=== PATIENT | female | born 1985 | race Two or more races ===

== ENCOUNTER 2019-04-10 17:50 | Emergency (ER) | payer SELFPAY ==
[~2019-04-10] VITALS: Ht 152.4 cm; Wt 56.7 kg
[2019-04-10 19:00] VITALS: BP 141/87
--- NOTE | 2019-04-10 19:23 | PHYS DOC ---
Past Medical History Past Medical History: No Pertinent History (KARINE MCKEON DO) Past Surgical History: No Surgical History (KARINE MCKEON DO) Additional Information: Nonsmoker Alcohol Use: None Drug Use: None (KARINE MCKEON DO) Adult General Chief Complaint Chief Complaint: VAGINAL BLEEDING HPI HPI Patient is a 33 year old female with no significant medical history 1 para 0 presenting to the ED today with vaginal bleeding in that began yesterday as spotting and has not tongue didn't bleeding. Patient is also complaining of mild lower abdominal pain described as cramping and intermittent. Denies anything specifically exacerbating or relieving her symptoms. She states she is visiting from [place]. Her last menstrual cycle was around a 03/03/2019. (PATRIA GAN APRN) Review of Systems Review of Systems Constitutional: Denies fever or chills [] Eyes: Denies change in visual acuity, redness, or eye pain [] HENT: Denies nasal congestion or sore throat [] Respiratory: Denies cough or shortness of breath [] Cardiovascular: No additional information not addressed in HPI [] GI: Reports abdominal pain and vaginal bleeding in , denies nausea, vomiting, bloody stools or diarrhea [] : Denies dysuria or hematuria [] Musculoskeletal: Denies back pain or joint pain [] Integument: Denies rash or skin lesions [] Neurologic: Denies headache, focal weakness or sensory changes [] All other systems were reviewed and found to be within normal limits, except as documented in this note. (PATRIA GAN APRN) Allergies Allergies Allergies Coded Allergies Type Severity Reaction Last Updated Verified No Known Drug Allergies 04/10/19 No (KARINE MCKEON DO) Physical Exam Physical Exam Constitutional: Well developed, well nourished, no acute distress, non-toxic appearance. [] HENT: Normocephalic, atraumatic, bilateral external ears normal, oropharynx moist, no oral exudates, nose normal. [] Eyes: PERRLA, EOMI, conjunctiva normal, no discharge. [] Neck: Normal range of motion, no tenderness, supple, no stridor. [] Cardiovascular:Heart rate regular rhythm, no murmur [] Lungs & Thorax: Bilateral breath sounds clear to auscultation [] Abdomen: Bowel sounds normal, soft, no tenderness, no masses, no pulsatile masses. [] Pelvic exam External pelvic appears normal, cervix is visualized, closed, no CMT, adnexal tenderness, trace amount of pinkish discharge in the vaginal vault. Skin: Warm, dry, no erythema, no rash. [] Back: No tenderness, no CVA tenderness. [] Extremities: No tenderness, no cyanosis, no clubbing, ROM intact, no edema. [] Neurologic: Alert and oriented X 3, normal motor function, normal sensory function, no focal deficits noted. [] Psychologic: Affect normal, judgement normal, mood normal. [] (PATRIA GAN APRN) Physical Exam Constitutional: Well developed, well nourished, no acute distress, non-toxic appearance HENT: Normocephalic, atraumatic, oropharynx moist Eyes: Conjunctiva normal, no discharge Neck: Normal range of motion, no tenderness, supple Cardiovascular: Heart rate normal, regular rhythm Lungs & Thorax: Bilateral breath sounds clear to auscultation, no wheezing Abdomen: Soft, no tenderness Skin: Warm, dry, no erythema, no rash Extremities: No tenderness, ROM intact, no edema Neurologic: Alert and oriented X 3, no focal deficits noted Psychologic: Affect normal, judgement normall (MCKEONKARINE SPARROW R DO) Current Patient Data Vital Signs Vital Signs Date Time Temp Pulse Resp B/P (MAP) Pulse Ox O2 Delivery O2 Flow Rate FiO2 04/10/19 19:00 98.7 99 16 141/87 (105) 99 Room Air 98.7 (MCKEON,KARINE R DO) Lab Values Laboratory Tests Test 04/10/19 19:10 04/10/19 19:55 04/10/19 20:00 POC Urine HCG, Qualitative Hcg positive (Negative) White Blood Count 10.7 x10^3/uL (4.0-11.0) Red Blood Count 4.29 x10^6/uL (3.50-5.40) Hemoglobin 13.8 g/dL (12.0-15.5) Hematocrit 39.9 % (36.0-47.0) Mean Corpuscular Volume 93 fL (79-100) Mean Corpuscular Hemoglobin 32 pg (25-35) Mean Corpuscular Hemoglobin Concent 35 g/dL (31-37) Red Cell Distribution Width 13.3 % (11.5-14.5) Platelet Count 248 x10^3/uL (140-400) Neutrophils (%) (Auto) 68 % (31-73) Lymphocytes (%) (Auto) 23 % (24-48) L Monocytes (%) (Auto) 7 % (0-9) Eosinophils (%) (Auto) 2 % (0-3) Basophils (%) (Auto) 1 % (0-3) Neutrophils # (Auto) 7.3 x10^3uL (1.8-7.7) Lymphocytes # (Auto) 2.4 x10^3/uL (1.0-4.8) Monocytes # (Auto) 0.7 x10^3/uL (0.0-1.1) Eosinophils # (Auto) 0.2 x10^3/uL (0.0-0.7) Basophils # (Auto) 0.1 x10^3/uL (0.0-0.2) Maternal Serum HCG Beta Subunit 40552 mIU/mL (0-5) H Sodium Level 137 mmol/L (136-145) Potassium Level 3.2 mmol/L (3.5-5.1) L Chloride Level 100 mmol/L (98-107) Carbon Dioxide Level 27 mmol/L (21-32) Anion Gap 10 (6-14) Blood Urea Nitrogen 8 mg/dL (7-20) Creatinine 0.6 mg/dL (0.6-1.0) Estimated GFR (Cockcroft-Gault) 115.1 BUN/Creatinine Ratio 13 (6-20) Glucose Level 136 mg/dL (70-99) H Calcium Level 9.2 mg/dL (8.5-10.1) Total Bilirubin 0.5 mg/dL (0.2-1.0) Aspartate Amino Transferase (AST) 69 U/L (15-37) H Alanine Aminotransferase (ALT) 26 U/L (14-59) Alkaline Phosphatase 71 U/L (46-116) Total Protein 7.8 g/dL (6.4-8.2) Albumin 4.0 g/dL (3.4-5.0) Albumin/Globulin Ratio 1.1 (1.0-1.7) Urine Color Yellow Urine Clarity Clear Urine pH 6.5 Urine Specific [place] <=1.005 Urine Protein Negative mg/dL (NEG-TRACE) Urine Glucose (UA) Negative mg/dL (NEG) Urine Ketones (Stick) Negative mg/dL (NEG) Urine Blood Small (NEG) Urine Nitrite Negative (NEG) Urine Bilirubin Negative (NEG) Urine Urobilinogen Dipstick 0.2 mg/dL (0.2 mg/dL) Urine Leukocyte Esterase Negative (NEG) Urine RBC Occ /HPF (0-2) Urine WBC Occ /HPF (0-4) Urine Squamous Epithelial Cells Occ /LPF Urine Bacteria 0 /HPF (0-FEW) Laboratory Tests 04/10/19 19:55 Laboratory Tests 04/10/19 19:55 Microbiology 04/10/19 Wet Prep - Final, Complete (KARINE MCKEON DO) EKG EKG [] (PATRIA GAN APRN) Radiology/Procedures Radiology/Procedures [] (PATRIA GAN APRN) Radiology/Procedures PROCEDURE: OB <14 WKS W/TV OB ultrasound less than 14 weeks to include transabdominal and transvaginal imaging 04/10/2019 CLINICAL HISTORY: First trimester with vaginal bleeding. TECHNIQUE: Using the distended urinary bladder as a sonographic window, a real-time ultrasound examination of the pelvis was performed. Additionally in an attempt to better evaluate the uterus and adnexa, a transvaginal ultrasound study was performed. Multiple images were obtained. FINDINGS: The uterus is retroflexed. A gestational sac is seen within the endometrial canal within the body/fundus of the uterus. Within this gestational sac an embryonic pole and associated yolk sac are seen. The CRL of the embryonic pole measures 6.9 mm. This corresponds to an estimated gestational age by ultrasound of 6 weeks 4 days plus or minus a standard deviation of 4 days. Embryonic cardiac activity is seen with a heart rate 125 beats per minutes. Superior to the gestational sac a hypoechoic area is seen which measures 1.8 cm in greatest diameter. This most likely represents an area of subchorionic hemorrhage. Both ovaries are within normal limits in size. The right ovary measures 3.4 x 3.0 x 1.9 cm in size. A 1.7 cm corpus luteum is seen involving the right ovary. The left ovary measures 2-4 x 2.3 x 1.3 cm in size. No free fluid is seen. IMPRESSION: Single living IUP with an estimated gestational age by ultrasound of 6 weeks 4 days plus or minus a standard deviation of 4 days. The estimated date of delivery by ultrasound is 11/30/2019. Electronically signed by: Cain Melendez MD (04/10/2019 10:44 PM) [facility] (KARINE MCKEON DO) Course & Med Decision Making Course & Med Decision Making Pertinent Labs and Imaging studies reviewed. (See chart for details) This is a 33-year-old female patient 1 para 0 presenting to the ED today complaining of vaginal bleeding in that began yesterday. Positive urine hCG. Labs and ultrasound pending 19:[address] Mckeon (PATRIA GAN APRN) Course & Med Decision Making Sign out received from Patria MORATAYA for patient with vaginal bleeding in . Patient awaiting lab and US results. Labs reviewed with appropriate BHCG and positive RH factor. No signs of active infection noted. US with signs stable I UP with good heart tones. Patient stable for discharge with outpatient follow-up with PCP/OB-[facility]ANKSHAFT [facility]ANCER. OB-[facility]SHA[facility] referral provided. Discussed findings and plan with patient, who acknowledges u nderstanding and agreement. (KARINE MCKEON DO) Dragon Disclaimer Dragon Disclaimer This electronic medical record was generated, in whole or in part, using a voice recognition dictation system. (PATRIA GAN APRN) Departure Departure Impression: Primary Impression: Threatened miscarriage Disposition: 01 HOME, SELF-CARE Condition: STABLE Referrals: UMU DEAL Jr, MD Patient Instructions: Threatened Miscarriage, [id number] Scripts Pnv Cmb#95/Ferrous Fumarate/Fa ( TABLET) 1 Each Tablet 1 TAB PO DAILY, #30 TAB Prov: KARINE MCKEON DO 04/10/19 Attending Signature Attending Signature I have personally interviewed and examined the patient. All charts, labs, and imaging studies were reviewed. I agree with the PA/CONVEX GRINDER OPERATOR's findings, exam, and plan. (KARINE MCKEON DO) PATRIA GAN APRN Apr 10, 2019 19:23 KARINE MCKEON DO Apr 10, 2019 22:59
[2019-04-10 20:10] LABS: BASO # 0.1 x10^3/uL (0.0-0.2); BASO % 1 % (0-3); EOS # 0.2 x10^3/uL (0.0-0.7); EOS % 2 % (0-3); HEMATOCRIT 39.9 % (36.0-47.0); HEMOGLOBIN 13.8 g/dL (12.0-15.5); LYMPH # 2.4 x10^3/uL (1.0-4.8); LYMPH % 23 % (24-48); MEAN CORPUSCULAR HEMOGLOBIN 32 pg (25-35); MEAN CORPUSCULAR HGB CONC 35 g/dL (31-37); MEAN CORPUSCULAR VOLUME 93 fL (79-100); MONO # 0.7 x10^3/uL (0.0-1.1); MONO % 7 % (0-9); NEUT # 7.3 x10^3uL (1.8-7.7); NEUT % 68 % (31-73); PLATELET COUNT 248 x10^3/uL (140-400); RED BLOOD COUNT 4.29 x10^6/uL (3.50-5.40); RED CELL DISTRIBUTION WIDTH 13.3 % (11.5-14.5); WHITE BLOOD COUNT 10.7 x10^3/uL (4.0-11.0)
[2019-04-10 20:28] LABS: CALCIUM 9.2 mg/dL (8.5-10.1); CREATININE 0.6 mg/dL (0.6-1.0); GFR 115.1; POTASSIUM 3.2 mmol/L (3.5-5.1)
[2019-04-10 20:32] LABS: BILIRUBIN,URINE NEGATIVE (NEG); CLARITY,URINE CLEAR; COLOR,URINE YELLOW; NITRITE,URINE NEGATIVE (NEG); PH,URINE 6.5; PROTEIN,URINE NEGATIVE (NEG-TRACE); UROBILINOGEN,URINE 0.2 mg/dL (0.2 mg/dL)
[2019-04-10 20:33] LABS: ALBUMIN/GLOBULIN RATIO 1.1 (1.0-1.7); TOTAL BILIRUBIN 0.5 mg/dL (0.2-1.0); TOTAL PROTEIN 7.8 g/dL (6.4-8.2)
[2019-04-10 20:40] LABS: BACTERIA,URINE 0 /HPF (0-FEW); RBC,URINE OCC /HPF (0-2); SQUAMOUS EPITHELIAL CELL,UR OCC /LPF; WBC,URINE OCC /HPF (0-4)
--- NOTE | 2019-04-10 22:47 | RAD ---
OB ultrasound less than 14 weeks to include transabdominal and transvaginal imaging 04/10/2019 CLINICAL HISTORY: First trimester with vaginal bleeding. TECHNIQUE: Using the distended urinary bladder as a sonographic window, a real-time ultrasound examination of the pelvis was performed. Additionally in an attempt to better evaluate the uterus and adnexa, a transvaginal ultrasound study was performed. Multiple images were obtained. FINDINGS: The uterus is retroflexed. A gestational sac is seen within the endometrial canal within the body/fundus of the uterus. Within this gestational sac an embryonic pole and associated yolk sac are seen. The CRL of the embryonic pole measures 6.9 mm. This corresponds to an estimated gestational age by ultrasound of 6 weeks 4 days plus or minus a standard deviation of 4 days. Embryonic cardiac activity is seen with a heart rate 125 beats per minutes. Superior to the gestational sac a hypoechoic area is seen which measures 1.8 cm in greatest diameter. This most likely represents an area of subchorionic hemorrhage. Both ovaries are within normal limits in size. The right ovary measures 3.4 x 3.0 x 1.9 cm in size. A 1.7 cm corpus luteum is seen involving the right ovary. The left ovary measures 2-4 x 2.3 x 1.3 cm in size. No free fluid is seen. IMPRESSION: Single living IUP with an estimated gestational age by ultrasound of 6 weeks 4 days plus or minus a standard deviation of 4 days. The estimated date of delivery by ultrasound is 11/30/2019. Electronically signed by: Cain Melendez MD (04/10/2019 10:44 PM) [facility]
[2019-04-10] MEDS ORDERED: PNV1TABL25 PO (22:57)
[2019-04-14 00:07] LABS: GC PROBE Negative (Negative)
== END 2019-04-10 23:00 | disposition home or self-care (01) ==
LOC: ER 17:50
DX: O20.0 Threatened abortion (principal); R10.30 Lower abdominal pain, unspecified; Z3A.01 Less than 8 weeks gestation of pregnancy
CPT/HCPCS: 36415; 76801; 76817; 80053; 81001; 81025; 84702; 85025; 86850; 86900; 86901; 87491; 87591; 99285; Q0111